=== PATIENT | male | born 1995 | race Caucasian/White ===

== ENCOUNTER → 2016-08-26 | Outpatient (CLI) | payer OTHER ==
--- NOTE | 2016-08-26 08:20 | REP ---
CT abdomen and pelvis without IV or oral contrast: History: Groin and testicular pain. 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 The lung bases are clear on axial CT slices. Bowel gas pattern is normal. The liver and the spleen are normal in size and homogeneous in texture. No abnormalities noted in the gallbladder or pancreas. No adrenal lesion is seen on either side. The kidneys are morphologically intact. No intrarenal calculus or mass is seen. No hydronephrosis is noted. No evidence of ureteral stone or bladder calculus is seen. Seminal vesicles and prostate are unremarkable. No bony destructive lesion is seen. No abdominal wall defect is noted. Normal appendix is visible in the right lower quadrant. Impression: No abnormality noted. Signed by Chris Short MD 08/26/2016 08:21 A
== END ==
LOC: M RAD 07:37
PROVIDERS: ATTEND Nurse Practitioner Women's Health
DX: N50.819 Testicular pain, unspecified (principal)

== ENCOUNTER → 2016-09-17 | Outpatient (REF) | payer OTHER | LOC: M SMT 13:05 | PROVIDERS: ATTEND Urology | DX: N41.1 Chronic prostatitis (principal) ==